=== PATIENT | female | born 1945 | race Caucasian/White ===

== ENCOUNTER → 2024-04-29 13:05 | Outpatient (BNVA) | payer MEDICARE, OTHER, SELFPAY | PROVIDERS: Family Provider Family Medicine; PCP Family Medicine; Visit Provider Specialist | DX: R20.0 Anesthesia of skin (principal); R20.2 Paresthesia of skin; G56.01 Carpal tunnel syndrome, right upper limb | CPT/HCPCS: 95908; 95909 ==